=== PATIENT | male | born 1985 | race Caucasian/White ===

== ENCOUNTER 2017-08-29 08:31 | Emergency (ER) | payer OTHER ==
[~2017-08-29] VITALS: Ht 175.3 cm; Wt 65.0 kg
[2017-08-29 08:45] VITALS: BP 113/81; PULSE 87; RESP 18; TEMP 98.5; O2SAT 99
[2017-08-29] MEDS ORDERED: LAMO100T PO (08:52)
[2017-08-29] MEDS ORDERED: CITA20TA4 PO (08:52)
[2017-08-29] MEDS ORDERED: SILVER SULFADIAZINE 1% CR 50 GM JAR TOPICAL ONE (09:00)
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
[2017-08-29] MEDS ORDERED: TETANUS/DIPHTHERIA TOXOID ADULT 0.5 ML VIAL IM ONE (10:00)
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
[2017-08-29 12:18] VITALS: BP 119/74
== END 2017-08-29 12:17 | disposition home or self-care (01) ==
LOC: NEPC 08:31
DX: S40.021A Contusion of right upper arm, initial encounter (principal); S40.812A Abrasion of left upper arm, initial encounter; S90.512A Abrasion, left ankle, initial encounter; S80.211A Abrasion, right knee, initial encounter; V23.4XXA Motorcycle driver injured in collision with car, pick-up truck or van in traffic accident, initial encounter; Y92.410 Unspecified street and highway as the place of occurrence of the external cause; Z23 Encounter for immunization
CPT/HCPCS: 72050; 73030; 73060; 90471; 90714